=== PATIENT | male | born 1960 | race Caucasian/White ===

== ENCOUNTER 2018-09-03 16:44 | Emergency (ER) | payer MEDICAID ==
[~2018-09-03] VITALS: Ht 167.6 cm; Wt 82.1 kg
[2018-09-03 19:13] VITALS: BP 149/78; Ht 167.6 cm; Wt 82.1 kg
== END 2018-09-03 21:07 | disposition home or self-care (01) ==
LOC: ED 16:44
DX: M75.51 Bursitis of right shoulder (principal); E11.9 Type 2 diabetes mellitus without complications
CPT/HCPCS: J1885; J7512